=== PATIENT | male | born 1990 | race Caucasian/White ===

== ENCOUNTER 2017-08-06 17:21 | Emergency (ER) | payer OTHER ==
[~2017-08-06] VITALS: Ht 180.3 cm; Wt 59.0 kg
[~2017-08-06 17:21] MED LIST: ALKA-SELTZER P1 EAC2 PO; AMOXICILLIN875 MG PO; IBUPROFEN400 MG PO; PEPCID20 MG PO
[2017-08-06] MEDS ORDERED: KEFLEX500 MG PO (18:10)
[2017-08-06] MEDS ORDERED: KETOROLAC TROME10 MG PO (18:10)
== END 2017-08-06 18:25 | disposition home or self-care (01) ==
LOC: ED 17:21
DX: S80.211A Abrasion, right knee, initial encounter (principal); F17.200 Nicotine dependence, unspecified, uncomplicated; V03.90XA Pedestrian on foot injured in collision with car, pick-up truck or van, unspecified whether traffic or nontraffic accident, initial encounter
CPT/HCPCS: 73560; 99283

== ENCOUNTER 2020-02-28 22:29 | Emergency (ER) | payer OTHER ==
[~2020-02-28] VITALS: Ht 180.3 cm; Wt 59.0 kg
[~2020-02-28 22:29] MED LIST changes: +KEFLEX500 MG PO; +KETOROLAC TROME10 MG PO
[2020-02-28] MEDS ORDERED: ANUSOL-HC30 GM PR (23:40)
[2020-02-28] MEDS ORDERED: COLACE100 MG PO (23:40)
== END 2020-02-28 23:56 | disposition home or self-care (01) ==
LOC: ED 22:29
DX: K64.4 Residual hemorrhoidal skin tags (principal); F17.200 Nicotine dependence, unspecified, uncomplicated
CPT/HCPCS: 99282

== ENCOUNTER 2020-12-18 14:48 | Emergency (ER) | payer OTHER ==
[~2020-12-18] VITALS: Ht 180.3 cm; Wt 59.0 kg
[~2020-12-18 14:48] MED LIST changes: +ANUSOL-HC30 GM PR; +COLACE100 MG PO
[2020-12-18] MEDS ORDERED: METHADONE HCL40 MG PO (15:17)
--- NOTE | 2020-12-18 22:26 | EKG ---
[facility] [address] [facility] [place], [place] [address] Signed Sinus tachycardia Cannot rule out Anterior infarct , age undetermined Abnormal ECG No previous ECGs available Confirmed by FREDERICK BAILEY MD [id number] on 12/18/2020 10:25:53 PM Electronically Signed By: FREDERICK BAILEY MD 12/18/202225 PATIENT NAME: SARAH LANDEROS JR Electrocardiogram DATE OF : 89 PHYSICIAN: FREDERICK BAILEY MD REPORT #: [id number] REPORT IS CONFIDENTIAL AND NOT TO BE RELEASED WITHOUT AUTHORIZATION
== END 2020-12-18 17:41 | disposition home or self-care (01) ==
LOC: ED 14:48
DX: T60.4X2A Toxic effect of rodenticides, intentional self-harm, initial encounter (principal); F17.200 Nicotine dependence, unspecified, uncomplicated; Z79.899 Other long term (current) drug therapy
CPT/HCPCS: 80053; 80176; 81001; 83605; 84443; 85025; 85610; 85730; 93005; 93010; 99285-25

== ENCOUNTER 2021-11-11 09:18 | Emergency (ER) | payer OTHER ==
[~2021-11-11] VITALS: Ht 180.3 cm; Wt 71.4 kg
[~2021-11-11 09:18] MED LIST changes: +METHADONE HCL40 MG PO
== END 2021-11-11 11:18 | disposition home or self-care (01) ==
LOC: ED 09:18
DX: R10.9 Unspecified abdominal pain (principal); F19.10 Other psychoactive substance abuse, uncomplicated; R74.01 Elevation of levels of liver transaminase levels; F17.200 Nicotine dependence, unspecified, uncomplicated; Z79.899 Other long term (current) drug therapy; R11.2 Nausea with vomiting, unspecified
CPT/HCPCS: 36415; 80053; 81001; 83690; 85025; 96374; 99284-25; J1790; J7030